=== PATIENT | female | born 1945 | race Caucasian/White ===

== ENCOUNTER 2018-05-08 13:46 | Emergency (ER) | payer OTHER, MEDICAID ==
[~2018-05-08] VITALS: Ht 160 cm; Wt 70.0 kg
[2018-05-08] MEDS ORDERED: ONDANSETRON 4MG ODT PO PRN (14:00)
[2018-05-08] MEDS ORDERED: MORPHINE SULFATE 4 MG/ML CPJ (NOT FOR IM USE) IV PRN (14:00)
[2018-05-08 15:40] VITALS: BP 141/67
[2018-05-08] MEDS ORDERED: HYDROCODONE/ACETAMINOPHEN 5/325MG TABLET PO ONE (16:15)
== END 2018-05-08 16:52 | disposition home or self-care (01) ==
LOC: ER 13:46
DX: S42.252A Displaced fracture of greater tuberosity of left humerus, initial encounter for closed fracture (principal); W01.0XXA Fall on same level from slipping, tripping and stumbling without subsequent striking against object, initial encounter; Y93.89 Activity, other specified; Y92.89 Other specified places as the place of occurrence of the external cause; I10 Essential (primary) hypertension
CPT/HCPCS: 71045; 73030; 96374; 99284; J2270; Q0162; A4565; L3670